=== PATIENT | male | born 1955 | race Caucasian/White ===

== ENCOUNTER 2020-02-04 12:18 | Outpatient (CLI) | payer OTHER, SELFPAY ==
--- NOTE | 2020-02-04 | ECHO_ITS ---
Patient Info Name: Clive Jarquin Age: 64 years : 1955 Gender: Male Ht: 71 in Wt: 232 lbs BSA: 2.33 m2 HR: 57 bpm BP: 138 / 90 mmHg Technical Quality: Good Exam Date: 02/04/2020 1:14 PM Exam Location: [facility] Patient Status: Outpatient Admit Date: 02/04/2020 Staff Ordering Physician: FreddyHeri MD Fx Artist: Abdulkadir Jimenez, PADMINI, RT Attending Provider: FreddyHeri MD Exam Type: CA echo doppler color flow Study Info Indications R00.1 - Bradycardia, unspecified Complete two-dimensional, color flow and Doppler transthoracic echocardiogram is performed. Strain analysis performed. Summary 1. Complete two-dimensional, color flow and Doppler transthoracic echocardiogram is performed. 2. Left ventricular chamber dimension is normal. 3. Left ventricular systolic function is normal, estimated at 60-65%. 4. There is mildly increased left ventricular wall thickness. 5. The left ventricular diastolic function is normal. 6. E/e' 7 is not elevated. 7. Global longitudinal strain is normal a t-18.8%. 8. Left atrial chamber dimension is mildly enlarged. 9. Right atrial chamber dimension is mildly enlarged. 10. There is mild aortic valve sclerosis. 11. There is mild aortic valve regurgitation. 12. There is trace tricuspid valve regurgitation. 13. There is trace pulmonic regurgitation. Left Ventricle E/e' 7 is not elevated. Global longitudinal strain is normal a t-18.8%. Left ventricular chamber dimension is normal. Left ventricular systolic function is normal, estimated at 60-65%. There is mildly increased left ventricular wall thickness. The left ventricular diastolic function is normal. Right Ventricle Right ventricular systolic function is normal with normal TAPSE of 2.6 cm. Right ventricular chamber dimension is normal. Left Atria Left atrial chamber dimension is mildly enlarged. Right Atria Right atrial chamber dimension is mildly enlarged. Aortic Valve The aortic valve is trileaflet. There is mild aortic valve sclerosis. There is no aortic valve stenosis. There is mild aortic valve regurgitation. Pulmonic Valve There is trace pulmonic regurgitation. Mitral Valve There is no mitral valve stenosis. There is no mitral valve regurgitation. Tricuspid Valve There is trace tricuspid valve regurgitation. RVSP is not calculated due to an inadequate TR jet. Pericardium/Pleural There is no pericardial effusion. Inferior Vena Cava Normal inferior vena cava with >50% collapse upon inspiration consistent with normal right atrial pressure, 5 mmHg. Aorta The aortic root size at the sinus of Valsalva is normal. Left Ventricular Outflow Tract Name Value Normal LVOT 2D LVOT Diameter 2.0 cm LVOT Doppler LVOT Peak Gradient 7 mmHg LVOT Mean Gradient 4 mmHg LVOT VTI 28 cm LVOT VTI/AV VTI Ratio 0.7 LVOT Stroke Volume 89 ml LVOT CO 5.0 l/min LVOT CI
--- NOTE | 2020-02-08 18:46 | WPDHOLTEREM ---
Holter/Event Monitor Holter/Event Monitor Date of procedure: 02/08/20 Diagnosis: Bradycardia Indications: Bradycardia Image/Tracing Quality: Good Finding: The patient was monitored for 48 hours. The underlying rhythm was sinus with a minimum heart rate of 44 beats per minute, average heart rate of 66 beats per minute and a maximum heart rate of 136 beats per minute. There were 6 PVCs and 133 APCs with 7 atrial couplets. There was no atrial fibrillation, SVT, ventricular tachycardia, for heart block. No pauses were recorded. No diary was submitted. Conclusion: Holter monitor was remarkable for rare APCs and PVCs as well as atrial couplets.
== END 2020-02-04 12:19 | disposition home or self-care (01) ==
PROVIDERS: PCP Internal Medicine; Visit Provider Internal Medicine
DX: R00.1 Bradycardia, unspecified (principal); I08.3 Combined rheumatic disorders of mitral, aortic and tricuspid valves
CPT/HCPCS: 93225; 93226; 93306